=== PATIENT | male | born 1945 | race Caucasian/White ===

== ENCOUNTER 2016-11-23 13:26 | Emergency (ER) | payer OTHER ==
[2016-11-23 13:37] VITALS: BP 144/70; BMI 26.6
[2016-11-23] MEDS ORDERED: ADACEL TDaP IM ONE ×2 (13:37→13:38)
[2016-11-23] MEDS ORDERED: XYLOCAINE 1 % (PLAIN) ONE (13:38)
--- NOTE | 2016-11-23 14:05 | DR.GENAD ---
HPI - PCP Primary Care Physician: GABI - HPI Comment HPI Comment: HISTORY BELOW. - Complaint/Symptoms Chief Complaint Doctors Comments: PATIENT WAS ON THE 12 FT LADDER, CAME DOWN TO 5 FT AND PATIENT FELL WITH LADDER FALLING FIRST. HE DID NOT HIT HIS HEAD AND DID NOT LOOSE CONSCIOUSNESS. PAIN FOREARM RT WITH LACERATION AND SKIN TEAR RT HAND. DENIES NECK PAIN. WALKING IN ED WITH NORMAL GAIT. Chief Complaint:: PT C/O RT ELBOW AND RT FOREARM LACERATIONS. ALSO NOTED SKIN TEARS RO RT HAND. PT STATES HE FEEL OFF OF A LADDER. PT DENIES AND LOC. - Nurses notes reviewed Nurses Notes Review: Yes - Source History Provided: Patient - Mode of Arrival Mode of Arrival: Ambulatory - Timing Onset of Chief Complaint: 11/23/16 Came on: Suddenly - Duration Duration: Constant Duration: Hours - Severity Severity: Moderate PMH - PMH Past Medical History: No Past Surgical History: Yes Past Surgical History Comment: BACK SURGERY - Family History History of Family Medical Conditions: No - Social History Does any household member use tobacco: No Alcohol Use: Occasionally Do you use any recreational Drugs:: No Lives With: Family Lives Where: Home - infectious screening In the last 2 months have you had wt loss of >10#?: NO Have you had fever, night sweats or hemotysis?: No Have you traveled outside the country in the last 6 months?: No Isolation: Standard ROS - Review of Systems Constitutional: No Symptoms Reported Eyes: No Symptoms Reported ENTM: No Symptoms Reported Respiratoy: No Symptoms Reported Cardiovascular: No Symptoms Reported Gastrointestinal/Abdominal: No Symptoms Reported Genitourinary: No Symptoms Reported Neurological: No Symptoms Reported Musculoskeletal: Right, Elbow, Hand Integumentary: Other (LAC RT ELBOW, RT HAND, RT FOREARM) Hematologic/Lymphatic: No Symptoms Reported Endocrine: No Symptoms Reported All Other Systems: Reviewed and Negative PE - Vital Signs Vitals: Temperature 98.1 F Pulse Rate 72 Respiratory Rate 20 Blood Pressure 144/70 O2 Sat by Pulse Oximetry 98 - General Limitations: No Limitations General Appearance: Alert - Head Head Exam: Normal Inspection - Eyes Eye exam: Normal Appearance - ENT ENT Exam: Normal External Ear Exam External Ear Exam: Normal External Inspection TM/Canal Exam: Bilateral Normal Nose Exam: Normal Nose Exam Mouth Exam: Normal Inspection Throat Exam: Normal Inspection - Neck Neck Exam: Trachea Midline - Chest Chest Inspection: Symmetric Chest Wall Rise - Respiratory Respiratory Exam: Normal Lung Sounds Bilat Respiratory Exam: Bilateral Clear to Auscultation - Cardiovascular Cardiovascular Exam: Regular Rate, Normal Rhythm, Normal Heart Sounds - Abdominal Exam Abdominal Exam: Normal Bowel Sounds, Soft. negative: Tenderness - Extremities Extremities Exam: Tenderness (LACERATION RIGHT FOREARM AND ELBOW/SKIN TEAR RT HAND.), Joint Swelling (RT ELBOW.) - Back Back Exam: Normal Inspection - Neurologic Neurological Exam: Alert, Oriented X3, CN II-XII Intact, Normal Gait, Reflexes Normal. negative: Motor Sensory Deficit - Psychiatric Psychiatric Exam: Normal Affect, Normal Mood - Skin Skin Exam: Erythema, Other (LACERATION RIGHT FOREARM, RT ELBOW AND SKIN TEAR RIGHT HAND.) MDM - Additional Information Additional Information Obtained From: Family - Differential Diagnosis Differential Diagnosis: LACERATION RT ELBOW AND FOREARM. SKIN TEAR RIGHT HAND. Course - Treatment Treatment: SEE ORDRES. LACERATION CLOSED. - Education/Counseling Education/Counseling: Patient, Education Educated On: Diagnosis, Needs for Follow Up Procedures - Laceration/Wound Repair Right Elbow Wound Length (cm): 3 Wound's Depth, Shape: Linear Wound Explored: no foreign body removed Irrigated w/ Saline (ccs): 10 Betadine Prep?: Yes Anesthesia: 1% Lidocaine Volume Anesthetic (ccs): 3 Wound Debrided: minimal Wound Repaired With: sutures Suture Size/Type: 4:0, Ethilion Number of Sutures: 5 Layer Closure?: No Sterile Dressing Applied?: Yes Splint Applied?: No Sling Applied?: No Right Arm Wound Length (cm): 4 Wound's Depth, Shape: Linear Wound Explored: no foreign body removed Irrigated w/ Saline (ccs): 10 Betadine Prep?: Yes Anesthesia: 1% Lidocaine Volume Anesthetic (ccs): 4 Wound Debrided: minimal Wound Repaired With: sutures Suture Size/Type: 4:0, Ethilion Number of Sutures: 8 Layer Closure?: No Sterile Dressing Applied?: Yes Splint Applied?: No Sling Applied?: No Progress: 6 SUTURE TO 4CM LAC ON RT FOREARM AND 2 SUTURES TO 1CM LAC RIGHT FOREARM. SKIN TEAR RIGHT HAND BELOW THUMB CLEAN AND DRESSING APPLIED. - Diagnosis Discharge Problem: Laceration of right elbow Qualifiers: Encounter type: initial encounter Qualified Code(s): S51.011A - Laceration without foreign body of right elbow, initial encounter Laceration of right forearm Qualifiers: Encounter type: initial encounter Qualified Code(s): S51.811A - Laceration without foreign body of right forearm, initial encounter Skin tear of right hand without complication Qualifiers: Encounter type: initial encounter Qualified Code(s): S61.411A - Laceration without foreign body of right hand, initial encounter - Discharge Plan Disposition: HOME, SELF-CARE Condition: Stable Prescriptions: Acetaminophen with Codeine [Tylenol/Codeine #3 300-30 mg] 1 tab PO Q8H PRN #15 tab PRN Reason: Pain Cephalexin [KEFLEX CAP 500 MG *] 500 mg PO TID #21 cap - Follow ups/Referrals Follow ups/Referrals: FERNANDO ASHLEY [Primary Care Provider] - 3 days - Instructions Instructions: Laceration Care, Adult, [id number] Additional Instructions: RETURN TO ED IF WORSE. SUTURE OUT IN 10 DAYS.
[2016-11-23] MEDS ORDERED: HYDROGEN PEROXIDE 3% ONE (14:31)
== END 2016-11-23 15:28 | disposition home or self-care (01) ==
LOC: ER 13:32
PROC: 0XQ80ZZ Repair Right Upper Arm, Open Approach (ICD-10-PCS; principal; 2016-11-23)
DX: S51.811A Laceration without foreign body of right forearm, initial encounter (principal); S51.011A Laceration without foreign body of right elbow, initial encounter; S61.411A Laceration without foreign body of right hand, initial encounter; W11.XXXA Fall on and from ladder, initial encounter; Y92.9 Unspecified place or not applicable
CPT/HCPCS: 90471; 99282; 99283; J2001

== ENCOUNTER 2017-06-24 07:25 | Day surgery (SDC) | payer OTHER ==
[2017-06-24] MEDS ORDERED: VERSED ONE ×2 (07:39→10:38)
[2017-06-24] MEDS ORDERED: NS 500 ML IV 500 ML IV ONE (07:53)
[2017-06-24] MEDS ORDERED: TETRACAINE 0.5% OPHTH 1 DOSE AFFEYE ONE ×3 (08:00→10:21)
[2017-06-24] MEDS ORDERED: VIGAMOX 0.5% OPHTH 1 DOSE AFFEYE ONE ×5 (08:05→11:05)
[2017-06-24] MEDS ORDERED: PROLENSA OPHTH 1 DOSE AFFEYE ONE (08:16)
[2017-06-24] MEDS ORDERED: ALPHAGAN-P OPHTH 1 DOSE AFFEYE ONE (08:17)
[2017-06-24] MEDS ORDERED: CYCLOGYL 1% OPHTH 1 DOSE OP ONE ×3 (08:18→08:20)
[2017-06-24] MEDS ORDERED: MYDRIACIL OPHTH 1 DOSE AFFEYE ONE ×3 (08:18→08:20)
[2017-06-24] MEDS ORDERED: AK-DILATE 2.5% OPHTH 1 DOSE OP ONE ×3 (08:18→08:20)
[2017-06-24] MEDS ORDERED: VERSED IVP ONE (10:07)
[2017-06-24] MEDS ORDERED: AK-DILATE 10% OPHTH 1 DOSE AFFEYE ONE (10:24)
[2017-06-24] MEDS ORDERED: BETADINE OPHTH SOLN 5% EACHEYE ONE (10:32)
[2017-06-24] MEDS ORDERED: DUOVISC IO ONE ×2 (10:35→10:48)
[2017-06-24] MEDS ORDERED: ADRENALINE CHL INJ IJ ONE ×2 (10:35→10:48)
[2017-06-24] MEDS ORDERED: XYLOCAINE-MPF 1% IJ ONE ×2 (10:35→10:48)
[2017-06-24] MEDS ORDERED: BSS OPHTH (PLAIN) 500 ML with VANCOMYCIN HCL 500 MG VIAL 25 MG, ADRENALINE CHL INJ 1 MG IR ONE ×6 (10:36)
[2017-06-24] MEDS ORDERED: VISCOAT 0.5 ML IO ONE (10:56)
[2017-06-24 11:29] VITALS: BP 132/72
== END 2017-06-24 11:26 | disposition home or self-care (01) ==
LOC: SURG1 07:25
PROVIDERS: ATTEND Ophthalmology
PROC: 08DJ3ZZ Extraction of Right Lens, Percutaneous Approach (ICD-10-PCS; principal; 2017-06-24 12:00)
PROC: 08RJ3JZ Replacement of Right Lens with Synthetic Substitute, Percutaneous Approach (ICD-10-PCS; principal; 2017-06-24 12:00)
DX: H25.11 Age-related nuclear cataract, right eye (principal); H25.011 Cortical age-related cataract, right eye; H52.221 Regular astigmatism, right eye
CPT/HCPCS: 99100; A4217; J0170; J2250; J3370